=== PATIENT | female | born 1955 | race Hispanic/Latino ===

== ENCOUNTER 2020-05-07 01:14 | Inpatient (IN) | payer MEDICARE ==
[~2020-05-07] VITALS: Ht 152.4 cm; Wt 72.1 kg
[~2020-05-07 01:14] MED LIST: AUGMENTIN875TAB PO; CEPHALEXIN500 MG PO; FLEXERIL OR; GLUCOTROL XL2.5 MG PO; LORTAB5 PO; METFORMIN500 MG PO; MOTRIN600 MG/TAB PO; NAPROSYN500 MG PO; PRAVASTATIN SOD10 MG PO; TRAMADOL HCL50 MG PO; ZESTRIL30 MG PO
[2020-05-07 02:03] LABS: IMMATURE GRANULOCYTES 0.4 % (0.0-5.0); MEAN CORPUSCULAR HGB CONC 32.1 g/dL CAL (32.0-36.0); NEUT# 5.78 thou/uL (2.00-7.15); RED BLOOD COUNT 3.87 mill/uL (4.20-5.60); RED CELL DISTRI WIDTH 12.7 % (11.5-15.5)
[2020-05-07 02:07] LABS: HEMATOCRIT 36.1 % (37.0-47.0); HEMOGLOBIN 11.6 g/dl (12.0-16.0); MEAN CELL VOLUME 93.3 fL CALC (80.0-100.0)
--- NOTE | 2020-05-07 02:08 | NUR ---
PATIETN RESTING QUIETLY, NO C/O PAIN OR DISCOMFORT, SLIGHTLY LABORED BREATHING, AWAITING RESPIRATORY FOR ABG AND TREATMENT, FAMILY AT BEDSIDE.
[2020-05-07 02:14] LABS: ALBUMIN 3.8 g/dL (3.2-5.0); ALKALINE PHOSPHATASE 108 u/l (38-126); ANION GAP 10 (6-22 (CALC)); BUN 18 mg/dL (8-23); BUN/CREATININE RATIO 29 (12-20 (CALC)); CARBON DIOXIDE 25 mmol/l (22-30); CHLORIDE 105 mmol/l (95-108); CREATININE 0.6 mg/dL (0.5-1.0); GFR > 60 ML/MIN (>=60 (CALC)); GFR FOR AFR.AMER. > 60 ML/MIN (>=60 (CALC)); POTASSIUM 3.5 mmol/l (3.5-5.1); SODIUM 137 mmol/l (137-146); TOTAL PROTEIN 6.5 g/dL (6.3-8.2)
[2020-05-07 02:17] LABS: BILIRUBIN, TOTAL 0.4 mg/dL (0.0-1.4); SGOT/AST 49 u/l (9-36)
--- NOTE | 2020-05-07 02:17 | NUR ---
RESPIRATORY AT BEDSIDE
[2020-05-07 02:23] LABS: D-DIMER 1.37 mg/L (0.19-0.60)
[2020-05-07 02:25] LABS: MYOGLOBIN 29 ng/mL (0 - 62)
[2020-05-07 02:27] LABS: PROTHROMBIN TIME 9.8 SECONDS (9.0-12.5)
--- NOTE | 2020-05-07 02:49 | NUR ---
NURSING SECURITY ASSESSOR NOTIFIED OF NEED FOR MAG.
--- NOTE | 2020-05-07 04:26 | NUR ---
LASIX GIVEN, BEDSIDE COMMODE PLACED BESIDE THE BED, PATIENT EDUCATED TO USE CALL LIGHT IF SHE NEEDS TO GET OUT OF BED, FAMILY AT BEDSIDE. AWAKE AND ALERT, NO C/O PAIN OR DISCOMFORT, NO S/S OF DISTRESS NOTED, RESPIRATIONS EVEN AND UNLABORED.
--- NOTE | 2020-05-07 05:53 | NUR ---
LIBBY Banks RESTING, FAMILY AT BEDSIDE, AWAITING INPATIENT ROOM ASSIGNMENT.
--- NOTE | 2020-05-07 06:27 | NUR ---
patient o2 sat 100% on o2@3l nc, flow decreased o2 flow decreased to 1.5l
--- NOTE | 2020-05-07 06:52 | NUR ---
HAND OFF REPORT GIVEN TO BE
--- NOTE | 2020-05-07 07:30 | NUR ---
REPORT RECEIVED FROM YVONNE Dumont RN. INTRODUCED SELF TO PT REPORTS COUGH AND SOB X 1 WEEK AND WORSENED TODAY. PT ON 1.5 L OF O2 VIA NC. RR 18-20. NSR WITH FREQ PVCS ON TELE MONITOR. PT AOX3. PERFORMS ADLS PER SELF. PT REQUESTING MEDICATION FOR COUGH, DR ESPOSITO NOTIFIED AND ORDER RECEIVED.
[2020-05-07 08:00] VITALS: BP 138/78
--- NOTE | 2020-05-07 08:31 | NUR ---
PT MEDICATED FOR COUGH WITH ADAM AC. PT TOLERATED ADMINSITRATION WITHOUT DIFFICLYT.
--- NOTE | 2020-05-07 08:35 | NUR ---
SOOT BLOWER BEDSIDE FOR REPEAT TROPONIN DRAW.
--- NOTE | 2020-05-07 09:25 | NUR ---
PT TRANSPORTED TO [facility] VIA [facility]CHER WITH MONITOR IN PLACE IN STABLE CONDITION. PTS NURSE MADE AWARE OF PTS ARRIVAL TO FLOOR.
[2020-05-07 09:30] VITALS: BP 143/63
--- NOTE | 2020-05-07 09:30 | NUR ---
PT ARRIVED TO [facility] VIA WHEELCHAIR ACCOMPANIED BY ER NURSE. PT ALERT AND ORIENTED X3, AMBULATED WITH STEADY GAIT TO BED, ORIENTED PT TO ROOM AND CALL LIGHT, DISCUSSED POC, PT DENIES ANY NEEDS AT THIS TIME, DISCUSSED NITRO PASTE, ADMISSION ASSESSMENT COMPLETED, TEDS APPLIED, CALL LIGHT IN REACH,CONTINUE TO MONITOR.
[2020-05-07 11:00] VITALS: BP 103/74
--- NOTE | 2020-05-07 12:00 | NUR ---
PT RESTING IN BED, VOICES NO NEEDS OR COMPLAINTS AT THIS TIME, CALL LIGHT IN REACH,CONTINUE TO MONITOR.
--- NOTE | 2020-05-07 15:02 | NUR ---
PT BRADYCARDIC AT 43 BPM WITH BP WITHIN NORMAL PARAMETERS 121/68. NITRO PATCH THAT WAS IN [place] CHEST REMOVED.
[2020-05-07 15:50] VITALS: BP 146/73
--- NOTE | 2020-05-07 17:46 | NUR ---
INFORMED MD TEAM FOREMAN OF CRITICAL GLUCOSE, ORDERS ENTERED FOR HIGH DOSE SLIDING SCALE INSULIN. CALL LIGHT IN REACH,CONTINUE TO MONITOR.
[2020-05-07 21:06] VITALS: BP 122/59
--- NOTE | 2020-05-07 21:38 | NUR ---
PT IN BED WITH EYES OPEN AND ABLE TO MAKE NEEDS KNOWN. SKIN WARM TOTUCH. MEDS GIVEN AND TOLEERATED WELL. DENIES RESPIRATORY DISTRESS. OXYGEN IN PLACE AT 2LNC AND O2 SAT 99%. CONTINENT OF B/B AND ABLE TO TRANSER SELF TO TOILET. CALL LIGHT WITHIN REACH. WILL CONTINUE TO OBSERVE. ACCUCHECK 371 AND SSC GIVEN ORDERED. SNACK ALSO AT BEDSIDE
[2020-05-08 01:14] VITALS: BP 116/71
[2020-05-08 04:05] VITALS: BP 115/61
[2020-05-08 05:27] LABS: HEMATOCRIT 35.9 % (37.0-47.0); HEMOGLOBIN 11.7 g/dl (12.0-16.0); MEAN CELL VOLUME 92.3 fL CALC (80.0-100.0); MEAN CORPUSCULAR HGB 30.1 pG CALC (26.0-32.0); MEAN CORPUSCULAR HGB CONC 32.6 g/dL CAL (32.0-36.0); RED BLOOD COUNT 3.89 mill/uL (4.20-5.60); RED CELL DISTRI WIDTH 12.7 % (11.5-15.5)
[2020-05-08 05:42] LABS: ANION GAP 11 (6-22 (CALC)); BUN 33 mg/dL (8-23); BUN/CREATININE RATIO 41 (12-20 (CALC)); CARBON DIOXIDE 26 mmol/l (22-30); CHLORIDE 104 mmol/l (95-108); CREATININE 0.8 mg/dL (0.5-1.0); GFR > 60 ML/MIN (>=60 (CALC)); GFR FOR AFR.AMER. > 60 ML/MIN (>=60 (CALC)); POTASSIUM 3.6 mmol/l (3.5-5.1); SODIUM 137 mmol/l (137-146)
--- NOTE | 2020-05-08 06:43 | NUR ---
Pt in bed with eyes closed. No s/s of distress noted. Continent of b/b and ambulates to toilet with no complications noted. Call light withn reach. Will continue to observe
--- NOTE | 2020-05-08 07:15 | NUR ---
REPORT RECEIVED FROM MADELEINE MOSQUERA
--- NOTE | 2020-05-08 08:45 | NUR ---
PT RESTING IN SEMI FOWLERS POSITION,A&O X3;VS OBTAINED AND ASSESSMENT COMPLETED;PT DENIES ANY CURRENT PAIN OR DISCOMFORTS,PAIN SCALE AND REPORTING EDUCATED;RESPIRATIONS EVEN AND UNLABORED ON O2 @ 2L VIA NC, PT IS NOT OXYGEN DEPENDENT;ABDOMEN SOFT ON PALPATION AND ACTIVE IN ALL 4 QUADRANTS;STRONG PEDAL PULSES;SKIN INTACT;#20G TO RAC FLUSHED AND PATENT,ABX STARTED PER ORDER;TELE MONITORING IN PLACE;ACCUCHECK 117, NO COVERAGE NEEDED;PT REFUSES SCHEDULED FLU VACCINE;PT REMAINS IN AIR/CONTACT ISOLATION DUE TO PENDING COVID19 RESULTS;PT DENIES ANY ADDITIONAL NEEDS AT THIS TIME AND IS ENCOURAGED TO CALL FOR ASSISTANCE IF NEEDED;FALL PRECAUTIONS IN PLACE WITH BED IN THE LOWEST POSITION AND CALL LIGHT IN REACH;WILL CONTINUE TO MONITOR
[2020-05-08 08:48] VITALS: BP 128/41
[2020-05-08 10:45] VITALS: BP 104/62
--- NOTE | 2020-05-08 11:50 | NUR ---
PT RESTING IN SEMI FOWLERS POSITION;RESPIRATIONS EVEN AND UNLABORED ON O2 @ 2L VIA NC;PT DENIES ANY CURRENT PAIN OR DISCOMFORTS;IV SITE PATENT;TELE MONITORING IN PLACE;ACCUCHECK 316, PT COVERED WITH SLIDING SCALE INSULIN PER ORDER;PT DENIES ANY ADDITIONAL NEEDS AND IS ENCOURAGED TO CALL FOR ASSISTANCE IF NEEDED;CALL LIGHT IN REACH;WILL CONTINUE TO MONITOR
--- NOTE | 2020-05-08 13:25 | NUR ---
ALL DISCHARGE INSTRUCTIONS PROVIDED AT THIS TIME;PT INSTRUCTED TO F/U WITH PCP WITHIN A WEEK, PT MAY BENEFIT FROM AN OUTPT ECHO, AND TO KEEP A BLOOD PRESSURE LOG FOR HER PCP TO REVIEW;PT DENIES ANY QUESTIONS OR NEEDS;IV SITE REMOVED WITH CATHETER INTACT AND TELE MONITORING D/C AT THIS TIME;WHEELCHAIR TO BE PROVIDED FOR D/C HOME;FAMILY TO TRANSPORT PT HOME;WILL CONTINUE TO MONITOR
--- NOTE | 2020-05-08 13:50 | NUR ---
Discharge instructions given. Patient verbalizes understanding of same. Discharged in stable condition via Wheelchair to Home with family. All belongings sent with pt. PT TRANSPORTED TO [facility] IN STABLE CONDITION VIA WHEELCHAIR ACCOMPANIED BY WRITTER. ALL BELONGINGS LEFT WITH PATIENT. FAMILY TO TRANSPORT PT HOME.
== END 2020-05-08 13:48 | disposition home or self-care (01) | DRG 293 ==
LOC: ED 01:14 → ED-I 04:00 → ED 04:34 → ED-I 04:34 → MS2 08:39
PROVIDERS: Family Medicine; Nurse Practitioner; ADMIT Internal Medicine; ATTEND Internal Medicine
DX: I11.0 Hypertensive heart disease with heart failure (principal); I50.9 Heart failure, unspecified; R09.02 Hypoxemia; E83.42 Hypomagnesemia; E11.9 Type 2 diabetes mellitus without complications; E78.5 Hyperlipidemia, unspecified; F17.210 Nicotine dependence, cigarettes, uncomplicated; Z20.828 Contact with and (suspected) exposure to other viral communicable diseases; Z79.84 Long term (current) use of oral hypoglycemic drugs; Z79.899 Other long term (current) drug therapy
CPT/HCPCS: J1650; J3475; Q9967

== ENCOUNTER 2022-01-25 13:34 | Emergency (ER) | payer MEDICARE, MEDICAID ==
[~2022-01-25] VITALS: Ht 152.4 cm; Wt 71.8 kg
[2022-01-25] VITALS (20 sets, daily range): BP systolic 125–165; BP diastolic 60–78
[2022-01-25] MEDS ORDERED: JARDIANCE10 MG PO (15:22)
[2022-01-25] MEDS ORDERED: TRESIBA FL100 UNIT/M IJ (15:24)
[2022-01-25 15:32] LABS: HEMATOCRIT 39.3 % (37.0-47.0); HEMOGLOBIN 12.7 g/dl (12.0-16.0); IMMATURE GRANULOCYTES 0.4 % (0.0-5.0); MEAN CELL VOLUME 93.6 fL CALC (80.0-100.0); MEAN CORPUSCULAR HGB 30.2 pG CALC (26.0-32.0); MEAN CORPUSCULAR HGB CONC 32.3 g/dL CAL (32.0-36.0); NEUT# 3.52 thou/uL (2.00-7.15); RED BLOOD COUNT 4.2 mill/uL (4.20-5.60)
[2022-01-25 16:02] LABS: ALBUMIN 4.7 g/dL (3.2-5.0); ALKALINE PHOSPHATASE 115 u/l (38-126); BILIRUBIN, TOTAL 0.3 mg/dL (0.0-1.4); BUN 20 mg/dL (8-23); BUN/CREATININE RATIO 24 (12-20 (CALC)); CARBON DIOXIDE 24 mmol/l (22-30); CHLORIDE 101 mmol/l (95-108); CREATININE 0.8 mg/dL (0.5-1.0); GFR FOR AFR.AMER. > 60 ML/MIN (>=60 (CALC)); GFR OTHER RACES > 60 ML/MIN (>=60 (CALC)); SGOT/AST 24 u/l (9-36); SODIUM 137 mmol/l (137-146); TOTAL PROTEIN 8.5 g/dL (6.3-8.2)
[2022-01-25 16:07] LABS: ANION GAP 16 (6-22 (CALC)); POTASSIUM 3.6 mmol/l (3.5-5.1)
[2022-01-25] MEDS ORDERED: ZPAK PO (19:07)
== END 2022-01-25 19:27 | disposition home or self-care (01) ==
LOC: ED 13:34
PROVIDERS: Family Medicine
DX: U07.1 COVID-19 (principal); R07.89 Other chest pain; R05.9 Cough, unspecified; I10 Essential (primary) hypertension; E11.9 Type 2 diabetes mellitus without complications; E78.5 Hyperlipidemia, unspecified; F17.200 Nicotine dependence, unspecified, uncomplicated; Z79.84 Long term (current) use of oral hypoglycemic drugs; Z79.4 Long term (current) use of insulin

== ENCOUNTER 2022-05-18 09:54 | Emergency (ER) | payer MEDICARE, MEDICAID ==
[~2022-05-18] VITALS: Ht 152.4 cm; Wt 65.1 kg
[~2022-05-18 09:54] MED LIST changes: +JARDIANCE10 MG PO; +TRESIBA FL100 UNIT/M IJ; +ZPAK PO
[2022-05-18 10:21] VITALS: BP 156/61
[2022-05-18 10:31] VITALS: BP 146/69
[2022-05-18] MEDS ORDERED: FLEXERIL5 M1 PO (10:45)
[2022-05-18] MEDS ORDERED: MOTRIN400 MG/TAB PO (10:45)
[2022-05-18] MEDS ORDERED: VOLTAREN1%GEL TOP (10:45)
[2022-05-18 11:06] VITALS: BP 146/69
== END 2022-05-18 11:06 | disposition home or self-care (01) ==
LOC: ED 09:54
DX: M54.2 Cervicalgia (principal); I10 Essential (primary) hypertension; E11.9 Type 2 diabetes mellitus without complications; E78.5 Hyperlipidemia, unspecified; Z79.84 Long term (current) use of oral hypoglycemic drugs; Z79.4 Long term (current) use of insulin